=== PATIENT | male | born 1955 | race Caucasian/White ===

== ENCOUNTER 2024-09-20 11:29 | Inpatient (IN) | payer MEDICARE, MEDICAID ==
[~2024-09-20] VITALS: Ht 167.6 cm; Wt 84.4 kg
[2024-09-20] MEDS ORDERED: OLANZapine 5 MG RAPDIS TABLET PO PRN (13:00)
[2024-09-20] MEDS ORDERED: ZOLPIDEM TARTRATE 10 MG TABLET PO PRN (13:00)
[2024-09-20] MEDS ORDERED: LORazepam 2 MG TABLET PO PRN (13:00)
[2024-09-20] MEDS ORDERED: LOXA25CA13 PO (13:12)
[2024-09-20] MEDS ORDERED: METF-1211 PO (13:12)
[2024-09-20] MEDS ORDERED: CHOL200059 PO (13:12)
[2024-09-20] MEDS ORDERED: INSLAN SQ (13:12)
[2024-09-20] MEDS ORDERED: INSU100V SQ (13:12)
[2024-09-20] MEDS ORDERED: ALPR-705 PO (13:12)
[2024-09-20] MEDS ORDERED: MELA5TAB40 PO (13:12)
[2024-09-20 13:23] LABS: COVID AG,FIA SOURCE NPH
[2024-09-20 13:39] LABS: SARS-COV2 (COVID) ANTIGEN,FIA Negative (Negative)
[2024-09-20 13:41] LABS: AMPHET/METH SCREEN,URINE NEGATIVE (NEGATIVE); BARBITURATE SCREEN, URINE NEGATIVE (NEGATIVE); BENZODIAZEPINES SCREEN,URINE NEGATIVE (NEGATIVE); CANNABINOID SCREEN,URINE NEGATIVE (NEGATIVE); COCAINE SCREEN,URINE NEGATIVE (NEGATIVE); METHADONE SCREEN, URINE NEGATIVE (NEGATIVE); OPIATE SCREEN,URINE NEGATIVE (NEGATIVE); PHENCYCLIDINE SCREEN,URINE NEGATIVE (NEGATIVE)
[2024-09-20 13:42] LABS: ALCOHOL, URINE DRUG SCREEN NEGATIVE (NEGATIVE)
[2024-09-20] MEDS: LORazepam 2 MG/ML VIAL IM ONE (21:14)
[2024-09-20] MEDS: DiphenhydrAMINE HCL 50 MG/ML VIAL IM ONE (21:15)
[2024-09-20] MEDS: HALOPERIDOL LACTATE 5 MG/ML VIAL IM ONE (21:16)
[2024-09-20 23:24] VITALS: O2SAT 98
[2024-09-21 02:53] VITALS: BP 147/89; PULSE 93; RESP 18; TEMP 98.3; O2SAT 98
[2024-09-21 03:53] LABS: APPEARANCE,URINE CLEAR (CLEAR); BILIRUBIN,URINE NEGATIVE (NEGATIVE); COLOR,URINE LIGHT YELLOW (YELLOW); GLUCOSE, URINE (UA) 150-200 mg/dL (NEGATIVE); KETONES,URINE NEGATIVE (NEGATIVE); LEUKOCYTE ESTERASE ,URINE NEGATIVE (NEGATIVE); NITRATE,URINE NEGATIVE (NEGATIVE); OCCULT BLOOD,URINE NEGATIVE (NEGATIVE); PH,URINE 5.5 (5.0-8.0); PROTEIN,URINE NEGATIVE (NEGATIVE); SPECIFIC GRAVITIY, URINE 1.009 (1.003-1.030); UROBILINOGEN,URINE <=1.0 mg/dL (<=1.0)
[2024-09-21 03:54] LABS: BACTERIA,URINE None Seen /HPF (None Seen); RBC,URINE None Seen /HPF (0-2); SQUAMOUS EPITHELIAL CELL,UR Few /LPF (None Seen); WBC,URINE None Seen /HPF (0-5)
[2024-09-21 09:10] VITALS: BP 136/82; PULSE 99; RESP 18; TEMP 97.9; O2SAT 99
[2024-09-21] MEDS ORDERED: OMEPRAZOLE 20 MG CAPSULE PO PRN (10:30)
[2024-09-21] MEDS ORDERED: DOCUSATE SODIUM 100 MG CAPSULE PO PRN (10:30)
[2024-09-21] MEDS ORDERED: BACITRACIN 28 GM OINTMENT TP PRN (10:30)
[2024-09-21] MEDS ORDERED: ACETAMINOPHEN 325 MG TABLET PO PRN (10:30)
[2024-09-21] MEDS ORDERED: CloNIDine HCL 0.1 MG TABLET PO PRN (10:30)
[2024-09-21] MEDS ORDERED: ALBUTEROL SULFATE HFA 90 MCG/PUFF 8 GM INHALER IH PRN (10:30)
[2024-09-21] MEDS ORDERED: ONDANSETRON 4 MG TABLET PO PRN (10:30)
[2024-09-21] MEDS ORDERED: BENZOCAINE/MENTHOL LOZENGE PO PRN (10:30)
[2024-09-21] MEDS ORDERED: MAG HYDROX/ALUMINUM HYD/SIMETH ES 30 ML SUSPENSION UDCUP PO PRN (10:30)
[2024-09-21] MEDS ORDERED: MAGNESIUM HYDROXIDE SUSPENSION 30 ML UDCUP PO PRN (10:30)
[2024-09-21] MEDS: INSULIN GLARGINE,HUM.REC.ANLOG 100 UNITS/ML SQ SCH (10:30)
[2024-09-21] MEDS ORDERED: DEXTROSE 50%-WATER 25 GM/50 ML SYRINGE IVP PRN (10:30)
[2024-09-21] MEDS ORDERED: LOPERAMIDE HCL 2 MG CAPSULE PO PRN (10:30)
[2024-09-21] MEDS ORDERED: PETROLATUM,WHITE 28 GM JELLY TP PRN (10:30)
[2024-09-21 21:23] VITALS: RESP 18
[2024-09-21 21:24] VITALS: RESP 18
[2024-09-21 22:00] VITALS: BP 139/81; PULSE 82; RESP 18; O2SAT 95
[2024-09-21] MEDS: INSULIN LISPRO 100 UNITS/ML SQ PRN (22:03)
[2024-09-21] MEDS: IBUPROFEN 600 MG TABLET PO PRN (22:04)
[2024-09-21 23:04] VITALS: RESP 18
[2024-09-22] MEDS: TAMSULOSIN HCL 0.4 MG CAPSULE PO SCH (09:00)
[2024-09-22 09:52] VITALS: RESP 18
[2024-09-22] MEDS ORDERED: PROMETHAZINE HCL 25 MG TABLET PO PRN (11:45)
[2024-09-22] MEDS ORDERED: MAGNESIUM HYDROXIDE SUSPENSION 30 ML UDCUP PO PRN (11:45)
[2024-09-22] MEDS ORDERED: GuaiFENesin/D-METHORPHAN [SUGAR-FREE] 200-20MG/10 ML SYRUP UDCUP PO PRN (11:45)
[2024-09-22] MEDS ORDERED: ACETAMINOPHEN 325 MG TABLET PO PRN (11:45)
[2024-09-22] MEDS ORDERED: LOPERAMIDE HCL 2 MG CAPSULE PO PRN (11:45)
[2024-09-22] MEDS ORDERED: BREXPIPRAZOLE 0.25 MG TABLET PO PRN (11:45)
[2024-09-22] MEDS ORDERED: TUBERCULIN, PURIFIED PROTEIN DERIVATIVE 5 TU/0.1 ML SYRINGE ID ONE (11:45)
[2024-09-22] MEDS ORDERED: HydrOXYzine PAMOATE 50 MG CAPSULE PO PRN (11:45)
[2024-09-22] MEDS ORDERED: MELATONIN 5 MG TABLET PO PRN (11:45)
[2024-09-22] MEDS ORDERED: MAG HYDROX/ALUMINUM HYD/SIMETH ES 30 ML SUSPENSION UDCUP PO PRN (11:45)
[2024-09-22] MEDS: THIAMINE 100 MG TABLET PO SCH (17:00)
[2024-09-22] MEDS: BREXPIPRAZOLE 0.25 MG TABLET PO SCH (20:04)
[2024-09-22 20:36] LABS: GLUCOMETER DEV NAME(LOC) 3EX.2; GLUCOSE,POINT OF CARE 244 MG/DL (70-110)
[2024-09-22 20:42] VITALS: RESP 18
[2024-09-23] MEDS ORDERED: PNEUMOCOCCAL VACCINE POLYVALENT 0.5 ML SYRINGE [PPSV23] IM. ONE (05:45)
[2024-09-23] MEDS: FOLIC ACID 1 MG TABLET PO SCH (09:18)
[2024-09-23] MEDS: LORazepam 1 MG TABLET PO PRN (09:18)
[2024-09-23] MEDS: MULTIVITAMINS WITH MINERALS, THERAPEUTIC TABLET PO SCH (09:18)
[2024-09-23 10:11] VITALS: BP 150/91; PULSE 101; RESP 18; TEMP 97.8; O2SAT 98
[2024-09-23] MEDS ORDERED: HALOPERIDOL LACTATE 5 MG/ML VIAL IM PRN (11:45)
[2024-09-23 17:26] LABS: GLUCOMETER DEV NAME(LOC) 3E.C; GLUCOSE,POINT OF CARE 292 MG/DL (70-110)
[2024-09-23] MEDS: BREXPIPRAZOLE 0.25 MG TABLET PO SCH (21:02)
[2024-09-23 21:20] LABS: GLUCOMETER DEV NAME(LOC) 3EX.2; GLUCOSE,POINT OF CARE 148 MG/DL (70-110)
[2024-09-24 06:21] LABS: GLUCOMETER DEV NAME(LOC) 3EX.2; GLUCOSE,POINT OF CARE 133 MG/DL (70-110)
[2024-09-24 07:57] LABS: CHOL/HDL RATIO 2.8 (4.2-7.3)
[2024-09-24 11:25] LABS: GLUCOMETER DEV NAME(LOC) 3E.C; GLUCOSE,POINT OF CARE 184 MG/DL (70-110)
[2024-09-24 17:45] LABS: GLUCOMETER DEV NAME(LOC) 3E.C; GLUCOSE,POINT OF CARE 137 MG/DL (70-110)
[2024-09-24 20:26] LABS: GLUCOMETER DEV NAME(LOC) 3EX.2; GLUCOSE,POINT OF CARE 206 MG/DL (70-110)
[2024-09-25 07:25] LABS: GLUCOMETER DEV NAME(LOC) 3EX.2; GLUCOSE,POINT OF CARE 92 MG/DL (70-110)
[2024-09-25 08:40] LABS: BASOPHILS % (AUTO) 0.4 % (0.0-2.0); EOSINOPHILS % (AUTO) 1.2 % (1.0-6.0); HEMATOCRIT 46.2 % (41-53); HEMOGLOBIN 15.5 g/dL (13.5-17.5); LYMPHOCYTES # (AUTO) 2.1 K/uL (1.0-4.8); LYMPHOCYTES % (AUTO) 24.3 % (22.0-44.0); MEAN CORPUSCULAR HEMOGLOBIN 30.8 pg (26.0-34.0); MEAN CORPUSCULAR HGB CONC 33.5 G/dL (31.0-37.0); MEAN CORPUSCULAR VOLUME 92 fL (80-100); MONOCYTES # (AUTO) 0.9 K/uL (0.1-1.0); MONOCYTES % (AUTO) 10.7 % (2.0-9.0); NEUTROPHILS # (AUTO) 5.4 K/uL (1.8-7.7); NEUTROPHILS % (AUTO) 63.4 % (40.0-70.0); PLATELET COUNT (AUTO) 256 K/uL (150-450); RED BLOOD CELL COUNT(AUTO) 5.02 MIL/uL (4.50-5.90); RED CELL DISTRIBUTION WIDTH 13.4 % (11.5-14.5); WHITE BLOOD COUNT (AUTO) 8.5 K/uL (4.5-11.0)
[2024-09-25 08:50] LABS: ANION GAP 6 mmol/L (8-16); CALCIUM, TOTAL 9.3 mg/dL (8.8-10.5); CARBON DIOXIDE 32 mmol/L (22-29); CHLORIDE 104 mmol/L (98-107); CREATININE 0.98 mg/dL (0.60-1.30); GLOMERULAR FILTR. RATE CALC > 60 mL/min (>60); GLUCOSE,RANDOM 179 mg/dL (70-110); SODIUM SERUM 142 mmol/L (136-145); UREA NITROGEN, BLOOD 12 mg/dL (7-18)
[2024-09-25 08:51] LABS: ALCOHOL, BLOOD (SERUM) < 3 mg/dL (0-10)
[2024-09-25 08:59] LABS: HEMOGLOBIN A1C 6.8 % (3.8-5.6)
[2024-09-25 09:04] LABS: FREE T4 (FREE THYROXINE) 1.02 ng/dL (0.76-1.46); THYROID STIMULATING HORMONE 2.02 uIU/mL (0.36-3.74)
[2024-09-25] MEDS ORDERED: BREX1TAB PO (09:22)
[2024-09-25] MEDS ORDERED: MELA5TAB40 PO (09:22)
[2024-09-25 09:28] VITALS: BP 149/78; PULSE 90; RESP 17; TEMP 97.7; O2SAT 98
[2024-09-25 12:05] LABS: GLUCOMETER DEV NAME(LOC) 3E.C; GLUCOSE,POINT OF CARE 194 MG/DL (70-110)
[2024-09-25 17:20] LABS: GLUCOMETER DEV NAME(LOC) 3E.C; GLUCOSE,POINT OF CARE 136 MG/DL (70-110)
[2024-09-25] MEDS ORDERED: BENZ-247 PO (17:43)
[2024-09-25] MEDS: BREXPIPRAZOLE 1 MG TABLET PO SCH (20:35)
[2024-09-25 21:05] LABS: GLUCOMETER DEV NAME(LOC) 3EX.2; GLUCOSE,POINT OF CARE 128 MG/DL (70-110)
[2024-09-26 05:36] LABS: GLUCOMETER DEV NAME(LOC) 3EX.2; GLUCOSE,POINT OF CARE 133 MG/DL (70-110)
[2024-09-26] MEDS: BENZTROPINE MESYLATE 1 MG TABLET PO SCH (09:21)
[2024-09-26 10:23] VITALS: BP 129/81; PULSE 80; RESP 17; TEMP 97.8; O2SAT 97
[2024-09-26 12:16] LABS: GLUCOMETER DEV NAME(LOC) 3E.C; GLUCOSE,POINT OF CARE 198 MG/DL (70-110)
[2024-09-26 17:11] LABS: GLUCOMETER DEV NAME(LOC) 3E.C; GLUCOSE,POINT OF CARE 244 MG/DL (70-110)
[2024-09-26 20:10] LABS: GLUCOMETER DEV NAME(LOC) 3EX.2; GLUCOSE,POINT OF CARE 234 MG/DL (70-110)
[2024-09-26 20:35] VITALS: RESP 18
[2024-09-27 06:36] LABS: GLUCOMETER DEV NAME(LOC) 3EX.2; GLUCOSE,POINT OF CARE 119 MG/DL (70-110)
[2024-09-27 08:36] LABS: GLUCOMETER DEV NAME(LOC) 3E.C; GLUCOSE,POINT OF CARE 207 MG/DL (70-110)
[2024-09-27] MEDS ORDERED: TAMS0.4C94 PO (09:00)
[2024-09-27 09:40] VITALS: BP 140/71; PULSE 83; RESP 18; TEMP 98.4; O2SAT 97
== END 2024-09-27 10:10 | DRG 885 ==
LOC: EMS 11:29 → 3EX 09-21 00:44
PROVIDERS: ADMIT Psychiatry & Neurology Psychiatry; ATTEND Psychiatry & Neurology Psychiatry
PROC: GZHZZZZ Group Psychotherapy (ICD-10-PCS; principal; 2024-09-22)
PROC: GZ58ZZZ Individual Psychotherapy, Cognitive-Behavioral (ICD-10-PCS; 2024-09-22)
PROC: GZ56ZZZ Individual Psychotherapy, Supportive (ICD-10-PCS; 2024-09-22)
DX: F20.0 Paranoid schizophrenia (principal); G20.A1 Parkinson's disease without dyskinesia, without mention of fluctuations; I10 Essential (primary) hypertension; E11.9 Type 2 diabetes mellitus without complications; F17.200 Nicotine dependence, unspecified, uncomplicated; E78.00 Pure hypercholesterolemia, unspecified; E78.5 Hyperlipidemia, unspecified; G47.00 Insomnia, unspecified; K21.9 Gastro-esophageal reflux disease without esophagitis; K59.00 Constipation, unspecified; N40.0 Benign prostatic hyperplasia without lower urinary tract symptoms; Z20.822 Contact with and (suspected) exposure to COVID-19; Z88.5 Allergy status to narcotic agent; Z71.6 Tobacco abuse counseling; Z91.148 Patient's other noncompliance with medication regimen for other reason; Z55.9 Problems related to education and literacy, unspecified; Z59.9 Problem related to housing and economic circumstances, unspecified; Z60.8 Other problems related to social environment; Z63.9 Problem related to primary support group, unspecified; Z65.3 Problems related to other legal circumstances
CPT/HCPCS: 80048; 80061; 80307; 81001; 82962; 83036; 84439; 84443; 85025; 86592; 87081; 99285; G0378; G0480; J1815